=== PATIENT | female | born 1950 | race Caucasian/White ===

== ENCOUNTER 2020-12-15 12:30 | Inpatient (IN) | payer OTHER ==
[2020-12-15 14:40] VITALS: BMI 20.8
[2020-12-15] MEDS ORDERED: diazePAM 5 MG TABLET PO PRN (19:22)
[2020-12-15] MEDS ORDERED: METHOCARBAMOL 500 MG TABLET PO PRN (19:22)
[2020-12-15] MEDS ORDERED: MAGNESIUM CITRATE 300 ML BOTTLE PO PRN (19:22)
[2020-12-15] MEDS ORDERED: ONDANSETRON *ODT* 4 MG TABLET SL PRN (19:22)
[2020-12-15] MEDS ORDERED: ACETAMINOPHEN 325 MG TABLET (FP) PO PRN (19:22)
[2020-12-15] MEDS ORDERED: MAG HYDROX/AL HYDROX/SIMETH 30 ML UNIT-DOSE CUP PO PRN (19:22)
[2020-12-15] MEDS ORDERED: MENTHOL/PHENOL 1 EACH UD MM PRN (19:22)
[2020-12-15] MEDS ORDERED: BISMUTH SUBSALICYLATE 524 MG/30 ML UD PO PRN (19:22)
[2020-12-15] MEDS: THIAMINE HCL 100 MG TABLET (FP) PO SCH (21:43)
[2020-12-15] MEDS: MELATONIN 5 MG TABLETS PO SCH (23:15)
[2020-12-15] MEDS: diazePAM 5 MG TABLET PO SCH (23:16)
[2020-12-15] MEDS: hydrOXYzine PAMOATE 25 MG CAPSULE (FP) PO SCH (23:16)
[2020-12-16] MEDS: diazePAM 5 MG TABLET PO ONE (05:53)
[2020-12-16] MEDS: hydrOXYzine PAMOATE 25 MG CAPSULE (FP) PO SCH ×5 (06:05→22:55)
[2020-12-16] MEDS: diazePAM 5 MG TABLET PO SCH ×4 (06:06→22:00)
[2020-12-16] MEDS ORDERED: METHADONE 80 MG, METHADONE 10 MG PO ONE (09:11)
[2020-12-16] MEDS ORDERED: METHADONE HCL 10 MG TABLET PO ONE (09:11)
[2020-12-16] MEDS ORDERED: METHADONE HCL 10 MG TABLET ONE (09:25)
[2020-12-16] MEDS ORDERED: METHADONE HCL 40 MG DISPERSABLE TABLET ONE (09:28)
[2020-12-16] MEDS: PRENATAL VITAMINS W/ FOLIC ACID TABLET (FP) PO SCH (10:27)
[2020-12-16 10:36] LABS: ALBUMIN 4.1 g/dl (3.4-5.0); BLOOD UREA NITROGEN 21.4 mg/dL (7-18); CALCIUM 9.9 mg/dL (8.5-10.1)
[2020-12-16 10:39] LABS: CREATININE 1.2 mg/dL (0.55-1.3)
[2020-12-16 10:41] LABS: BILIRUBIN,TOTAL 0.7 mg/dL (0.2-1); HEMATOCRIT 38.7 % (32.4-45.2); HEMOGLOBIN 13.4 GM/dL (10.7-15.3); MCH 31.2 pg (25.7-33.7); MCHC 34.6 g/dl (32.0-36.0); MEAN CELL VOLUME 90.1 fl (80-96); PLATELET COUNT 389 K/MM3 (134-434); RBC 4.29 M/mm3 (3.60-5.2); RDW 14.2 % (11.6-15.6); TOT PROT 7.6 g/dl (6.4-8.2); WHITE BLOOD COUNT 7.2 K/mm3 (4.0-10.0)
[2020-12-16] MEDS: THIAMINE HCL 100 MG TABLET (FP) PO SCH (21:46)
[2020-12-16] MEDS: MELATONIN 5 MG TABLETS PO SCH (22:55)
[2020-12-17] MEDS ORDERED: METHADONE HCL 10 MG TABLET PO SCH (06:00)
[2020-12-17] MEDS ORDERED: METHADONE HCL 10 MG TABLET ONE (06:03)
[2020-12-17] MEDS ORDERED: METHADONE HCL 40 MG DISPERSABLE TABLET ONE (06:04)
[2020-12-17] MEDS: METHADONE 80 MG, METHADONE 10 MG PO SCH (06:05)
[2020-12-17] MEDS: diazePAM 5 MG TABLET PO SCH ×3 (06:05→22:57)
[2020-12-17] MEDS: hydrOXYzine PAMOATE 25 MG CAPSULE (FP) PO SCH ×5 (06:06→22:41)
[2020-12-17] MEDS: PRENATAL VITAMINS W/ FOLIC ACID TABLET (FP) PO SCH (10:22)
[2020-12-17] MEDS ORDERED: MASKS NR ONE (22:35)
[2020-12-17] MEDS: MELATONIN 5 MG TABLETS PO SCH (22:41)
[2020-12-17] MEDS: THIAMINE HCL 100 MG TABLET (FP) PO SCH (22:42)
[2020-12-18] MEDS ORDERED: METHADONE HCL 10 MG TABLET ONE (04:21)
[2020-12-18] MEDS ORDERED: METHADONE HCL 40 MG DISPERSABLE TABLET ONE (04:21)
[2020-12-18] MEDS: METHADONE 80 MG, METHADONE 10 MG PO SCH (06:00)
[2020-12-18] MEDS: diazePAM 5 MG TABLET PO SCH ×2 (06:00→17:37)
[2020-12-18] MEDS: hydrOXYzine PAMOATE 25 MG CAPSULE (FP) PO SCH ×5 (06:01→22:26)
[2020-12-18] MEDS: PRENATAL VITAMINS W/ FOLIC ACID TABLET (FP) PO SCH (10:04)
[2020-12-18 10:11] LABS: SARS-CoV-2 NAA Not Detected (Not Detected)
[2020-12-18] MEDS: THIAMINE HCL 100 MG TABLET (FP) PO SCH (22:25)
[2020-12-18] MEDS: MELATONIN 5 MG TABLETS PO SCH (22:25)
[2020-12-19] MEDS ORDERED: METHADONE HCL 10 MG TABLET ONE (04:36)
[2020-12-19] MEDS ORDERED: METHADONE HCL 40 MG DISPERSABLE TABLET ONE (04:38)
[2020-12-19] MEDS: hydrOXYzine PAMOATE 25 MG CAPSULE (FP) PO SCH ×5 (06:07→21:26)
[2020-12-19] MEDS: diazePAM 5 MG TABLET PO ONE (06:07)
[2020-12-19] MEDS: METHADONE 80 MG, METHADONE 10 MG PO SCH (06:08)
[2020-12-19] MEDS: PRENATAL VITAMINS W/ FOLIC ACID TABLET (FP) PO SCH (10:38)
[2020-12-19] MEDS: THIAMINE HCL 100 MG TABLET (FP) PO SCH (21:25)
[2020-12-19] MEDS: MELATONIN 5 MG TABLETS PO SCH (21:25)
[2020-12-20] MEDS: hydrOXYzine PAMOATE 25 MG CAPSULE (FP) PO SCH ×5 (06:14→21:45)
[2020-12-20] MEDS ORDERED: METHADONE HCL 40 MG DISPERSABLE TABLET ONE (06:15)
[2020-12-20] MEDS ORDERED: METHADONE HCL 10 MG TABLET ONE (06:15)
[2020-12-20] MEDS: METHADONE 80 MG, METHADONE 10 MG PO SCH (06:15)
[2020-12-20] MEDS: PRENATAL VITAMINS W/ FOLIC ACID TABLET (FP) PO SCH (10:10)
[2020-12-20] MEDS: IBUPROFEN 400 MG TABLET (FP) PO PRN ×2 (10:12→21:46)
[2020-12-20] MEDS: NICOTINE POLACRILEX 2 MG GUM BUC PRN ×2 (16:52→21:48)
[2020-12-20] MEDS: MELATONIN 5 MG TABLETS PO SCH (21:45)
[2020-12-20] MEDS: THIAMINE HCL 100 MG TABLET (FP) PO SCH (21:45)
[2020-12-21] MEDS ORDERED: METHADONE HCL 40 MG DISPERSABLE TABLET ONE (03:57)
[2020-12-21] MEDS ORDERED: METHADONE HCL 10 MG TABLET ONE (03:57)
[2020-12-21] MEDS: METHADONE 80 MG, METHADONE 10 MG PO SCH (06:18)
[2020-12-21] MEDS: hydrOXYzine PAMOATE 25 MG CAPSULE (FP) PO SCH ×4 (06:18→17:37)
[2020-12-21] MEDS: PRENATAL VITAMINS W/ FOLIC ACID TABLET (FP) PO SCH (10:13)
[2020-12-21] MEDS: IBUPROFEN 400 MG TABLET (FP) PO PRN ×2 (10:14→21:46)
[2020-12-21] MEDS: NICOTINE POLACRILEX 2 MG GUM BUC PRN (10:20)
[2020-12-21] MEDS: NICOTINE 7 MG/24 HOURS TOPICAL PATCH TD SCH (12:35)
[2020-12-21] MEDS: THIAMINE HCL 100 MG TABLET (FP) PO SCH (21:43)
[2020-12-21] MEDS: MELATONIN 5 MG TABLETS PO SCH (21:43)
[2020-12-22] MEDS ORDERED: METHADONE HCL 10 MG TABLET ONE (03:23)
[2020-12-22] MEDS ORDERED: METHADONE HCL 40 MG DISPERSABLE TABLET ONE (03:23)
[2020-12-22] MEDS: METHADONE 80 MG, METHADONE 10 MG PO SCH (06:28)
[2020-12-22] MEDS: PRENATAL VITAMINS W/ FOLIC ACID TABLET (FP) PO SCH (10:12)
[2020-12-22] MEDS: NICOTINE 7 MG/24 HOURS TOPICAL PATCH TD SCH (10:12)
[2020-12-22] MEDS: NICOTINE POLACRILEX 2 MG GUM BUC PRN (10:17)
[2020-12-22] MEDS: MELATONIN 5 MG TABLETS PO SCH (21:43)
[2020-12-22] MEDS: THIAMINE HCL 100 MG TABLET (FP) PO SCH (21:43)
[2020-12-22] MEDS: IBUPROFEN 400 MG TABLET (FP) PO PRN (21:45)
[2020-12-23] MEDS ORDERED: METHADONE HCL 10 MG TABLET ONE (04:56)
[2020-12-23] MEDS ORDERED: METHADONE HCL 40 MG DISPERSABLE TABLET ONE (04:57)
[2020-12-23] MEDS: METHADONE 80 MG, METHADONE 10 MG PO SCH (06:38)
[2020-12-23] MEDS: PRENATAL VITAMINS W/ FOLIC ACID TABLET (FP) PO SCH (09:59)
[2020-12-23] MEDS: IBUPROFEN 400 MG TABLET (FP) PO PRN ×2 (10:00→16:17)
[2020-12-23] MEDS: NICOTINE 7 MG/24 HOURS TOPICAL PATCH TD SCH (10:01)
[2020-12-23 10:07] LABS: SARS-CoV-2 NAA Not Detected (Not Detected)
[2020-12-23] MEDS: ACETAMINOPHEN 325 MG TABLET (FP) PO PRN (21:39)
[2020-12-23] MEDS: MELATONIN 5 MG TABLETS PO SCH (21:39)
[2020-12-23] MEDS: THIAMINE HCL 100 MG TABLET (FP) PO SCH (21:39)
[2020-12-24] MEDS ORDERED: METHADONE HCL 40 MG DISPERSABLE TABLET ONE (03:21)
[2020-12-24] MEDS ORDERED: METHADONE HCL 10 MG TABLET ONE (03:21)
[2020-12-24] MEDS: METHADONE 80 MG, METHADONE 10 MG PO SCH (06:38)
[2020-12-24] MEDS: PRENATAL VITAMINS W/ FOLIC ACID TABLET (FP) PO SCH (09:30)
[2020-12-24] MEDS: IBUPROFEN 400 MG TABLET (FP) PO PRN ×2 (09:32→21:27)
[2020-12-24] MEDS: NICOTINE 7 MG/24 HOURS TOPICAL PATCH TD SCH (09:32)
[2020-12-24] MEDS: MELATONIN 5 MG TABLETS PO SCH (21:26)
[2020-12-24] MEDS: THIAMINE HCL 100 MG TABLET (FP) PO SCH (21:26)
[2020-12-25] MEDS ORDERED: METHADONE HCL 40 MG DISPERSABLE TABLET ONE (04:11)
[2020-12-25] MEDS ORDERED: METHADONE HCL 10 MG TABLET ONE (04:11)
[2020-12-25] MEDS: METHADONE 80 MG, METHADONE 10 MG PO SCH (06:48)
[2020-12-25] MEDS: PRENATAL VITAMINS W/ FOLIC ACID TABLET (FP) PO SCH (09:49)
[2020-12-25] MEDS: NICOTINE 7 MG/24 HOURS TOPICAL PATCH TD SCH (09:49)
[2020-12-25] MEDS: IBUPROFEN 400 MG TABLET (FP) PO PRN (09:51)
[2020-12-25] MEDS: THIAMINE HCL 100 MG TABLET (FP) PO SCH (21:34)
[2020-12-25] MEDS: MELATONIN 5 MG TABLETS PO SCH (21:34)
[2020-12-26] MEDS ORDERED: METHADONE HCL 10 MG TABLET ONE (03:59)
[2020-12-26] MEDS ORDERED: METHADONE HCL 40 MG DISPERSABLE TABLET ONE (03:59)
[2020-12-26] MEDS: METHADONE 80 MG, METHADONE 10 MG PO SCH (06:33)
[2020-12-26] MEDS: PRENATAL VITAMINS W/ FOLIC ACID TABLET (FP) PO SCH (10:09)
[2020-12-26] MEDS: NICOTINE 7 MG/24 HOURS TOPICAL PATCH TD SCH (10:09)
[2020-12-26] MEDS: IBUPROFEN 400 MG TABLET (FP) PO PRN (10:10)
[2020-12-26] MEDS: THIAMINE HCL 100 MG TABLET (FP) PO SCH (21:22)
[2020-12-26] MEDS: MELATONIN 5 MG TABLETS PO SCH (21:22)
[2020-12-27] MEDS ORDERED: METHADONE HCL 10 MG TABLET ONE (03:18)
[2020-12-27] MEDS ORDERED: METHADONE HCL 40 MG DISPERSABLE TABLET ONE (03:18)
[2020-12-27] MEDS: METHADONE 80 MG, METHADONE 10 MG PO SCH (07:56)
[2020-12-27] MEDS: NICOTINE 7 MG/24 HOURS TOPICAL PATCH TD SCH (10:33)
[2020-12-27] MEDS: PRENATAL VITAMINS W/ FOLIC ACID TABLET (FP) PO SCH (10:33)
[2020-12-27] MEDS: ACETAMINOPHEN 325 MG TABLET (FP) PO PRN ×2 (10:34→21:21)
[2020-12-27] MEDS: MELATONIN 5 MG TABLETS PO SCH (21:20)
[2020-12-27] MEDS: THIAMINE HCL 100 MG TABLET (FP) PO SCH (21:20)
[2020-12-28] MEDS ORDERED: METHADONE HCL 10 MG TABLET ONE (03:35)
[2020-12-28] MEDS ORDERED: METHADONE HCL 40 MG DISPERSABLE TABLET ONE (03:35)
[2020-12-28] MEDS: IBUPROFEN 400 MG TABLET (FP) PO PRN (06:15)
[2020-12-28] MEDS: METHADONE 80 MG, METHADONE 10 MG PO SCH (06:15)
[2020-12-28] MEDS: PRENATAL VITAMINS W/ FOLIC ACID TABLET (FP) PO SCH (10:22)
[2020-12-28] MEDS: NICOTINE 7 MG/24 HOURS TOPICAL PATCH TD SCH (10:22)
[2020-12-28] MEDS: ACETAMINOPHEN 325 MG TABLET (FP) PO PRN ×2 (10:23→21:43)
[2020-12-28] MEDS: THIAMINE HCL 100 MG TABLET (FP) PO SCH (21:43)
[2020-12-28] MEDS: MELATONIN 5 MG TABLETS PO SCH (21:43)
[2020-12-29] MEDS ORDERED: METHADONE HCL 10 MG TABLET ONE (04:35)
[2020-12-29] MEDS ORDERED: METHADONE HCL 40 MG DISPERSABLE TABLET ONE (04:35)
[2020-12-29] MEDS: METHADONE 80 MG, METHADONE 10 MG PO SCH (06:31)
[2020-12-29] MEDS: IBUPROFEN 400 MG TABLET (FP) PO PRN (06:33)
[2020-12-29] MEDS: PRENATAL VITAMINS W/ FOLIC ACID TABLET (FP) PO SCH (10:37)
[2020-12-29] MEDS: NICOTINE 7 MG/24 HOURS TOPICAL PATCH TD SCH (10:37)
[2020-12-29] MEDS: METHOCARBAMOL 500 MG TABLET PO SCH ×2 (10:40→21:22)
[2020-12-29] MEDS: MELATONIN 5 MG TABLETS PO SCH (21:22)
[2020-12-29] MEDS: THIAMINE HCL 100 MG TABLET (FP) PO SCH (21:22)
[2020-12-30] MEDS ORDERED: METHADONE HCL 10 MG TABLET ONE (04:51)
[2020-12-30] MEDS ORDERED: METHADONE HCL 40 MG DISPERSABLE TABLET ONE (04:51)
[2020-12-30] MEDS: METHADONE 80 MG, METHADONE 10 MG PO SCH (06:50)
[2020-12-30] MEDS: IBUPROFEN 400 MG TABLET (FP) PO PRN (06:53)
[2020-12-30] MEDS: PRENATAL VITAMINS W/ FOLIC ACID TABLET (FP) PO SCH (10:23)
[2020-12-30] MEDS: METHOCARBAMOL 500 MG TABLET PO SCH ×2 (10:23→22:03)
[2020-12-30] MEDS: NICOTINE 7 MG/24 HOURS TOPICAL PATCH TD SCH (10:24)
[2020-12-30] MEDS: MAGNESIUM HYDROX 2400MG/30ML ORAL SUSPENSION 30 ML CUP PO PRN (18:48)
[2020-12-30] MEDS: THIAMINE HCL 100 MG TABLET (FP) PO SCH (22:03)
[2020-12-30] MEDS: MELATONIN 5 MG TABLETS PO SCH (22:03)
[2020-12-31] MEDS ORDERED: METHADONE HCL 10 MG TABLET ONE (05:26)
[2020-12-31] MEDS ORDERED: METHADONE HCL 40 MG DISPERSABLE TABLET ONE (05:26)
[2020-12-31] MEDS: METHADONE 80 MG, METHADONE 10 MG PO SCH (06:24)
[2020-12-31] MEDS: METHOCARBAMOL 500 MG TABLET PO SCH ×2 (10:15→21:44)
[2020-12-31] MEDS: PRENATAL VITAMINS W/ FOLIC ACID TABLET (FP) PO SCH (10:15)
[2020-12-31] MEDS: NICOTINE 7 MG/24 HOURS TOPICAL PATCH TD SCH (10:17)
[2020-12-31] MEDS: MAGNESIUM HYDROX 2400MG/30ML ORAL SUSPENSION 30 ML CUP PO PRN (12:48)
[2020-12-31] MEDS: MELATONIN 5 MG TABLETS PO SCH (21:44)
[2020-12-31] MEDS: THIAMINE HCL 100 MG TABLET (FP) PO SCH (21:44)
[2021-01-01] MEDS ORDERED: METHADONE HCL 40 MG DISPERSABLE TABLET ONE (03:31)
[2021-01-01] MEDS ORDERED: METHADONE HCL 10 MG TABLET ONE (03:31)
[2021-01-01] MEDS: METHADONE 80 MG, METHADONE 10 MG PO SCH (06:22)
[2021-01-01] MEDS: IBUPROFEN 400 MG TABLET (FP) PO PRN (06:22)
[2021-01-01] MEDS: PRENATAL VITAMINS W/ FOLIC ACID TABLET (FP) PO SCH (09:52)
[2021-01-01] MEDS: METHOCARBAMOL 500 MG TABLET PO SCH ×2 (09:52→21:26)
[2021-01-01] MEDS: NICOTINE 7 MG/24 HOURS TOPICAL PATCH TD SCH (09:52)
[2021-01-01] MEDS: THIAMINE HCL 100 MG TABLET (FP) PO SCH (21:26)
[2021-01-01] MEDS: MELATONIN 5 MG TABLETS PO SCH (21:26)
[2021-01-02] MEDS ORDERED: METHADONE HCL 10 MG TABLET ONE (03:47)
[2021-01-02] MEDS ORDERED: METHADONE HCL 40 MG DISPERSABLE TABLET ONE (03:48)
[2021-01-02] MEDS: IBUPROFEN 400 MG TABLET (FP) PO PRN (06:02)
[2021-01-02] MEDS: METHADONE 80 MG, METHADONE 10 MG PO SCH (06:03)
[2021-01-02] MEDS: PRENATAL VITAMINS W/ FOLIC ACID TABLET (FP) PO SCH (10:02)
[2021-01-02] MEDS: METHOCARBAMOL 500 MG TABLET PO SCH ×2 (10:02→21:29)
[2021-01-02] MEDS: NICOTINE 7 MG/24 HOURS TOPICAL PATCH TD SCH (10:03)
[2021-01-02] MEDS: THIAMINE HCL 100 MG TABLET (FP) PO SCH (21:29)
[2021-01-02] MEDS: MELATONIN 5 MG TABLETS PO SCH (21:29)
[2021-01-02] MEDS: ACETAMINOPHEN 325 MG TABLET (FP) PO PRN (21:29)
[2021-01-03] MEDS ORDERED: METHADONE HCL 40 MG DISPERSABLE TABLET ONE (06:02)
[2021-01-03] MEDS ORDERED: METHADONE HCL 10 MG TABLET ONE (06:02)
[2021-01-03] MEDS: METHADONE 80 MG, METHADONE 10 MG PO SCH (06:23)
[2021-01-03 07:20] VITALS: BP 152/68; PULSE 79; TEMP 97.9
[2021-01-03] MEDS: METHOCARBAMOL 500 MG TABLET PO SCH (09:32)
[2021-01-03] MEDS: PRENATAL VITAMINS W/ FOLIC ACID TABLET (FP) PO SCH (09:32)
[2021-01-03] MEDS: NICOTINE 7 MG/24 HOURS TOPICAL PATCH TD SCH (09:33)
[2021-01-03] MEDS ORDERED: MASKS NR ONE (09:36)
== END 2021-01-03 11:00 | disposition home or self-care (01) | DRG 895 ==
LOC: YASAS 12:30 → Y6N 18:52 → Y5N 12-19 14:01
PROVIDERS: ADMIT Allergy & Immunology; ATTEND Allergy & Immunology
PROC: HZ2ZZZZ Detoxification Services for Substance Abuse Treatment (ICD-10-PCS; 2020-12-15)
PROC: HZ42ZZZ Group Counseling for Substance Abuse Treatment, Cognitive-Behavioral (ICD-10-PCS; principal; 2020-12-19)
DX: F10.20 Alcohol dependence, uncomplicated (principal); F13.20 Sedative, hypnotic or anxiolytic dependence, uncomplicated; F11.20 Opioid dependence, uncomplicated; F17.210 Nicotine dependence, cigarettes, uncomplicated; J45.909 Unspecified asthma, uncomplicated; M12.9 Arthropathy, unspecified; M20.40 Other hammer toe(s) (acquired), unspecified foot; R60.0 Localized edema; R25.1 Tremor, unspecified; R63.4 Abnormal weight loss; Z68.22 Body mass index [BMI] 22.0-22.9, adult; Z87.81 Personal history of (healed) traumatic fracture; Z86.73 Personal history of transient ischemic attack (TIA), and cerebral infarction without residual deficits; Z99.89 Dependence on other enabling machines and devices
CPT/HCPCS: 36415; 80053; 82140; 85027; 86780; C9803; U0003; U0005